=== PATIENT | male | born 1985 | race Asian ===

== ENCOUNTER 2020-06-09 17:13 | Emergency (ER) | payer OTHER ==
[~2020-06-09] VITALS: Ht 170.2 cm; Wt 72.7 kg
[2020-06-09] MEDS ORDERED: ACYC200C PO (17:23)
[2020-06-09] MEDS ORDERED: PB/HYOSCY/ATR/SCOP/LIDO/MAALOX 55 ML BOTTLE PO ONE (18:15)
[2020-06-09 19:33] VITALS: BP 129/75
== END 2020-06-09 19:49 | disposition home or self-care (01) ==
LOC: EMS 17:30
DX: R06.6 Hiccough (principal); K21.9 Gastro-esophageal reflux disease without esophagitis; F17.210 Nicotine dependence, cigarettes, uncomplicated; F15.90 Other stimulant use, unspecified, uncomplicated